=== PATIENT | female | born 1980 | race Caucasian/White ===

== ENCOUNTER 2019-08-23 15:39 | Emergency (ER) | payer MEDICAID ==
[~2019-08-23] VITALS: Ht 167.6 cm; Wt 63.5 kg
[2019-08-23 16:40] VITALS: BP 101/42
== END 2019-08-23 17:56 | disposition home or self-care (01) ==
LOC: EDBD 15:39 → ER 16:00
DX: S29.011A Strain of muscle and tendon of front wall of thorax, initial encounter (principal); M79.18 Myalgia, other site; R51 Headache; V49.59XA Passenger injured in collision with other motor vehicles in traffic accident, initial encounter; Y93.89 Activity, other specified; Y92.488 Other paved roadways as the place of occurrence of the external cause; Y99.8 Other external cause status
CPT/HCPCS: 70450; 71250; 72125; 74176

== ENCOUNTER 2025-05-24 07:33 | Emergency (ER) | payer MEDICAID, OTHER ==
[~2025-05-24] VITALS: Ht 170.2 cm; Wt 75.0 kg
--- NOTE | 2025-05-24 07:52 | ED.PDOC ---
Buddy. trauma (HPI) HPI Comments A 44 YEAR OLD FEMALE BROUGHT IN BY AMBULANCE PRESENTS TO THE ED WITH COMPLAINT OF NECK PAIN, LEFT HIP PAIN AND HEADACHE STATUS POST FALL. PATIENT STATES SHE WAS AT WORK AND SHE ACCIDENTALLY SLIPPED AND FELL BACKWARDS. PATIENT REPORTS SHE HIT THE BACK OF HER HEAD ON THE GROUND IN HIS NOW EXPERIENCING A HEADACHE, NECK PAIN, AND LEFT HIP PAIN. PATIENT DENIES LOC, FEVER, CHILLS, SHORTNESS OF BREATH, CHEST PAIN, ABDOMINAL PAIN, NAUSEA, VOMITING, OR OTHER COMPLAINTS. NO OTHER SYMPTOMS OR MODIFYING FACTORS AT THIS TIME. PATIENT IS ALERT, ORIENTED X 4, AND HAS STEADY GAIT. Chief Complaint: Fall Injury Time Seen by MD: 07:39 Reviewed notes: Nurses Notes, Medications, Allergies Allergies: Coded Allergies: NO KNOWN ALLERGIES (Unverified , 09/07/10) Home Meds Active Scripts Methocarbamol (Methocarbamol) 750 Mg Tab, 750 MG PO BID, #20 TAB Prov:VIKAS RODRIGEZ 05/24/25 Ibuprofen (Ibuprofen) 800 Mg Tab, 1 TAB PO TID, #30 TAB Prov:VIKAS RODRIGEZ 05/24/25 Information Source: Patient Mode of Arrival: Ambulatory Severity: Moderate Timing: Hours Duration: Since onset Prehospital treatment: None Location: Head, (L) Hip, Neck Location of neck pain: (R) Posterior, (L) Posterior Mechanism: Fall Associated signs and symtoms: Headache Past Medical History PAST MEDICAL HISTORY: Denies Surgical History: Denies all surgeries IMPLEMENTATION SERVICES ANALYST History: No Pertinent IMPLEMENTATION SERVICES ANALYST History Family History Family History: Reviewed,noncontributory to illness, No family hx of Cancer, No family hx of DM, No family hx of Heart kim, No family hx of HTN, No family hx ofKidney kim, No family hx of Liver kim, No family hx of Lung kim, No family hx of Stroke Social History Smoker: Non-Smoker Alcohol: Denies ETOH Use Drugs: Denies Drug Use Lives In: Home Constitutional: denies: chills, diaphoresis, fatigue, fever, malaise, sweats, weakness, others EENTM: denies: blurred vision, double vision, ear bleeding, ear discharge, ear drainage, ear pain, ear ringing, eye pain, eye redness, hearing loss, mouth pain, mouth swelling, nasal discharge, nose bleeding, nose congestion, nose pain, photophobia, tearing, throat pain, throat swelling, voice changes, others Respiratory: denies: cough, hemoptysis, orthopnea, SOB at rest, shortness of breath, SOB with excertion, stridor, wheezing, others Cardiovascular: denies: chest pain, dizzy spells, diaphoresis, Dyspnea on exertion, edema, irregular heart beat, left arm pain, lightheadedness, palpitations, PND, syncope, others Gastrointestinal: denies: abdomen distended, abdominal pain, blood streaked bowels, constipated, diarrhea, dysphagia, difficulty swallowing, hematemesis, melena, nausea, poor appetite, poor fluid intake, rectal bleeding, rectal pain, vomiting, others Genitourinary: denies: abnormal vagina bleeding, burning, dyspareunia, dysuria, flank pain, frequency, hematuria, incontinence, pain, , vagina discharge, urgency, others Neurological: reports: headache; denies: dizziness, fainting, left sided numbness, left sided weakness, numbness, paresthesia, pre-existing deficit, right sided numbness, right sided weakness, seizure, speech problems, tingling, tremors, weakness, others Musculoskeletal: reports: joint pain, muscle pain, neck pain, others (LEFT HIP PAIN); denies: back pain, gout, joint swelling, muscle stiffness Integumetry: reports: bruises (RIGHT SIDE LOWER SCALP. ), lumps (RIGHT SIDE LOWER SCALP. ); denies: change in color, change in hair/nails, dryness, laceration, lesions, rash, wounds, others Allergic/Immunocompromised: denies: Difficulty Healing, Frequent Infections, Hives, Itching, others Hematologic/Lymphatic: denies: anemia, blood clots, easy bleeding, easy bruising, swollen glands, others Endocrine: denies: excessive hunger, excessive sweating, excessive thirst, excessive urination, flushing, intolerance to cold, intolerance to heat, unexplained weight gain, unexplained weight loss, others Psychiatric: denies: anxiety, bipolar disorder, depression, hopeless, panic disorder, schizophrenia, sleepless, suicidal, others All Other Systems: Reviewed and Negative Physical Exam General Appearance: Mild Distress, Normal, Other (ANXIETY ) HEENT: Head (A BUMP WITH CONTUSION ON RIGHT SIDE LOWER SCALP, NO BONY TENDERNESS AND DEFORMITY. ), Normal ENT Inspection, PERRL/EOMI, Pharynx Normal, TMs Normal Neck: Full Range of Motion, Normal Inspection, Supple, Tender Lateral (MUSCLE SPASM ON POSTERIOR NECK, NO BONY TENDERNESS, SWELLING AND DEFORMITY. ) Respiratory: Chest Non-Tender, Lungs Clear, No Accessory Muscle Use, No Respiratory Distress, Normal Breath Sounds Cardiovascular: No Edema, No JVD, No Murmur, No Gallop, Normal Peripheral Pulses, Regular Rate/Rhythm Breast Exam: Deferred Gastrointestinal: No Organomegaly, Non Tender, No Pulsatile Mass, Normal Bowel Sounds, Soft Genitalia: Deferred Pelvic: Deferred Rectal: Deferred Extremities: Decreased range of motion, No calf tenderness, Normal capillary refill, Normal inspection, No pedal edema, Tender (LEFT LATERAL HIP, NO BONY TENDERNESS, SWELLING AND DEFORMITY. ) Musculoskeletal : Apperance: Normal Neurologic: Alert, health underwriter II-XII nml as Tested, No Motor Deficits, Normal Affect, Normal Mood, No Sensory Deficits Cerebellar Function: Normal Reflexes: Normal Skin: Bruises (RIGHT SIDE LOWER SCALP. ), Dry, Normal Color, Warm Peripheral Pulses: 2+ carotid (R), 2+ carotid (L) Lymphatic: No Adenopathy Was a procedure done? Was a procedure done?: No Differential Diagnosis Multiple Trauma: Closed Head Injury, Fractures, Cerebral Contusion, Contusion, Hematoma, Other (MUSCLE STRAIN OF LEFT HIP, SPRAIN) Neck Injury: Cervical Muscle Spasm, Cervical Sprain, Cervical Strain, Cervical Fracture X-Ray, Labs, Meds, VS Vital Signs Date Time Temp Pulse Resp B/P (MAP) Pulse Ox O2 Delivery O2 Flow Rate FiO2 05/24/25 09:37 98.0 82 16 128/82 (97) 96 98.0 05/24/25 09:37 82 16 96 Room Air 05/24/25 07:40 98.0 82 16 128/82 96 98.0 Current Medications Medications (Trade) Dose Ordered Sig/Brianna Route Start Time Stop Time Status Last Admin Acetaminophen/ Hydrocodone Bitart ([place] 5/325MG Tab) 1 tab ONCE ONCE PO 05/24/25 09:30 05/24/25 09:31 DC 05/24/25 09:29 INDICATION: FALL COMPARISON: None TECHNIQUE: 4 views of the cervical spine were obtained. FINDINGS: The cervical vertebral alignment is normal. The predental space is normal. The intervertebral disc spaces are well-maintained. No significant facet arthropathy is noted. No acute fracture, vertebral compression deformity or aggressive osseous lesions. The imaged lung apices are unremarkable. IMPRESSION: No acute fracture. ATED BY: CHI BRUNNER MD DICTATED DATE/TIME: 05/24/25841 SIGNED BY: CHI BRUNNER MD SIGNED DATE/TIME: 05/24/25841 CC: left HIP RADIOGRAPH. CLINICAL INDICATION: FALL TECHNIQUE: 2 views of the left hip were obtained. FINDINGS: There is no evidence of fracture, subluxation or dislocation. Moderate left hip osteoarthritis The bony mineralization is normal.No radiopaque foreign body is identified. IMPRESSION: 1. No evidence of acute bony injury. ATED BY: CHI BRUNNER MD DICTATED DATE/TIME: 05/24/25839 SIGNED BY: CHI BRUNNER MD SIGNED DATE/TIME: 05/24/25839 CC: PATIENT: PETER STONEACCT: [id number] UNIT: [id number] : 1980 LOC: ER ROOM / BED: / AGE / SEX: 44 / F ADM STATUS: [facility] ER SERVICE 6 ORDERING PHYSICIAN: VIKAS RODRIGEZ PROCEDURE(s): HWOCT - HEAD WITHOUT CONTRAST REASON: FALL ORDER NUMBER(s): [id number], ACCESSION NUMBER(s): [id number] CLINICAL HISTORY: FALL TECHNIQUE: Helical scanning was performed of the head from the skull base to the vertex. Multiplanar reconstructions were performed. This exam was performed according to our departmental dose optimization program. Up-to-date CT equipment and radiation dose reduction techniques are utilized as appropriate. CTDI 51.6 DLP 826.2 COMPARISON: HEAD WITHOUT CONTRAST on DOS: 08/23/19 FINDINGS: There is no evidence for acute intracranial hemorrhage, acute ischemic changes, mass, mass effect, or extra-axial fluid collection. There is no hydrocephalus or midline shift. There is no effacement of the cerebral sulci and basal subarachnoid cisterns. The torres-white matter differentiation is well maintained. The imaged paranasal sinuses are clear. IMPRESSION: NO ACUTE INTRACRANIAL ABNORMALITY SEEN. ATED BY: CHI BRUNNER MD DICTATED DATE/TIME: 05/24/25 100 SIGNED BY: CHI BRUNNER MD SIGNED DATE/TIME: 05/24/25 1001 CC: X-Ray, Labs, Meds, VS Comment EXTERNAL MEDICAL RECORDS REVIEWED: [NONE] INDEPENDENT HISTORIANS: [NONE] SOCIAL DETERMINANTS OF HEALTH: [NONE] LABS ORDERED: NONE REVIEWED AND INTERPRETED RESULTS: NONE IMAGING ORDERED: XR HIP LT, CT BRAIN, XR C-SPINE TREATMENTS ORDERED: TORADOL 30 MG IV PROCEDURES PERFORMED: NONE CRITICAL CARE TIME: NONE I HAVE DISCUSSED THE PATIENT WITH THE ATTENDING PHYSICIAN DR. ALVARES AND HE AGREES WITH THE PATIENT'S PLAN OF CARE AND DISPOSITION. BASED ON HISTORY OF PRESENT ILLNESS, AND PHYSICAL EXAM, PATIENT WILL BE DISCHARGED HOME. DISCUSSED PLAN FOR DISCHARGE HOME WITH RX [IBUPROFEN 800 MG AND ROBAXIN]. MEDICATION WARNINGS GIVEN. SHARED DECISION MAKING: DISCUSSED WITH PATIENT THAT THEIR WORKUP WAS NORMAL. ZANDRA TOWNSEND INSTRUCTED TO FOLLOW UP WITH PRIMARY CARE PROVIDER IN 1-2 DAYS FOR RE- EVALUATION OF SYMPTOMS. PATIENT VERBALIZES UNDERSTANDING TO RETURN TO ED FOR NEW OR WORSENING SYMPTOMS OR IF FOLLOW UP WITH PCP CANNOT BE OBTAINED. PATIENT FEELS COMFORTABLE GOING HOME AT THIS TIME. ALL QUESTIONS ADDRESSED AT TIME OF DISCHARGE. Images Reviewed?: Images reviewed and evaluated by me Time of 1ST Reevaluation: 10:00 Reevaluation 1ST: Improved Patient Education/Counseling: Diagnosis, Treatment, Need For Follow Up Family Education/Counseling: Diagnosis, Treatment, Need For Follow Up Medical Screening: No EMC Exist At This Time Departure 1 Departure Time of Disposition: 10:00 Impression: Primary Impression: Cervical muscle strain Qualified Codes: S16.1XXA - Strain of muscle, fascia and tendon at neck level, initial encounter Additional Impressions: Scalp contusion Qualified Codes: S00.03XA - Contusion of scalp, initial encounter Muscle strain of left hip Qualified Codes: S76.012A - Strain of muscle, fascia and tendon of left hip, initial encounter Status post fall Disposition: 01 HOME / SELF CARE / HOMELESS Condition: Stable Additional Instructions: FOLLOW-UP WITH WORK[facility] IN 2 DAYS. TAKE MEDICATIONS PRESCRIBED. RETURN TO ED FOR ANY NEW OR WORSENING SYMPTOMS. e-Prescriptions Methocarbamol (Methocarbamol) 750 Mg Tab 750 MG PO BID, #20 TAB Prov: VIKAS RODRIGEZ 05/24/25 Ibuprofen (Ibuprofen) 800 Mg Tab 1 TAB PO TID, #30 TAB Prov: VIKAS RODRIGEZ 05/24/25 Discharged With: Self, Spouse Critical Care Note Critical Care Time?: No Stability Stability form required: No I personally scribed for VIKAS RODRIGEZ ([email or web address]) on 05/24/25 at 07:52. Electronically submitted by Guilherme Marroquin ([email or web address]). I personally scribed for VIKAS RODRIGEZ ([email or web address]) on 05/24/25 at 08:44. Electronically submitted by Guilherme Marroquin (Textádo). I personally scribed for VIKAS RODRIGEZ ([email or web address]) on 05/24/25 at 08:51. Electronically submitted by Guilherme Marroquin (Textádo). VIKAS RODRIGEZ May 24, 2025 07:52
[2025-05-24] MEDS: KETOROLAC TROMETH 30 MG/ML 1ML VIAL IV ONE (08:22)
--- NOTE | 2025-05-24 08:42 | DVH ---
left HIP RADIOGRAPH. CLINICAL INDICATION: FALL TECHNIQUE: 2 views of the left hip were obtained. FINDINGS: There is no evidence of fracture, subluxation or dislocation. Moderate left hip osteoarthri tis The bony mineralization is normal.No radiopaque foreign body is identified. IMPRESSION: 1. No evidence of acute bony injury.
[2025-05-24] MEDS ORDERED: METH-1182 PO (08:45)
[2025-05-24] MEDS ORDERED: IBUP-1456 PO (08:45)
--- NOTE | 2025-05-24 08:45 | DVH ---
INDICATION: FALL COMPARISON: None TECHNIQUE: 4 views of the cervical spine were obtained. FINDINGS: The cervical vertebral alignment is normal. The predental space is normal. The intervertebral disc spaces are well-maintained. No significant facet arthropathy is noted. No acute fracture, vertebral compression deformity or aggressive osseous lesions. The imaged lung apices are unremarkable. IMPRESSION: No acute fracture.
[2025-05-24] MEDS: HYDROcodone-ACET 5/325MG TAB PO ONE (09:29)
[2025-05-24 09:37] VITALS: BP 128/82; PULSE 82; RESP 16; TEMP 98; O2SAT 96
--- NOTE | 2025-05-24 10:03 | DVH ---
CLINICAL HISTORY: FALL TECHNIQUE: Helical scanning was performed of the head from the skull base to the vertex. Multiplanar reconstructions were performed. This exam was performed according to our departmental dose optimizat ion program. Up-to-date CT equipment and radiation dose reduction techniques are utilized as appropri ate. CTDI 51.6 DLP 826.2 COMPARISON: HEAD WITHOUT CONTRAST on DOS: 08/23/19 FINDINGS: There is no evidence for acute intracranial hemorrhage, acute ischemic changes, mass, mass effect, or extra-axial fluid collection. There is no hydrocephalus or midline shift. There is no effacement of the cerebral sulci and basal subarachnoid cisterns. The torres-white matter differentiation is well antonina ntained. The imaged paranasal sinuses are clear. IMPRESSION: NO ACUTE INTRACRANIAL ABNORMALITY SEEN.
== END 2025-05-24 09:42 | disposition home or self-care (01) ==
LOC: EDBD 07:33 → EDUNIT# 07:33 → ER 07:33
DX: S16.1XXA Strain of muscle, fascia and tendon at neck level, initial encounter (principal); S76.012A Strain of muscle, fascia and tendon of left hip, initial encounter; S00.03XA Contusion of scalp, initial encounter; Z79.1 Long term (current) use of non-steroidal anti-inflammatories (NSAID); Z79.899 Other long term (current) drug therapy; W01.0XXA Fall on same level from slipping, tripping and stumbling without subsequent striking against object, initial encounter; Y93.89 Activity, other specified; Y92.89 Other specified places as the place of occurrence of the external cause; Y99.0 Civilian activity done for income or pay
CPT/HCPCS: 70450; 72040; 73502; J1885